=== PATIENT | female | born 1965 | race Caucasian/White ===

== ENCOUNTER 2017-11-14 17:07 | Emergency (ER) | payer OTHER ==
[2017-11-14] MEDS ORDERED: HYDROmorphone 0.5 MG/0.5 ML SYRINGE IVP STA (17:20)
[2017-11-14] MEDS ORDERED: ONDANSETRON 4 MG/2 ML VIAL IVP STA ×2 (17:20→19:18)
--- NOTE | 2017-11-14 17:45 | XR ---
EXAMINATION TYPE: XR chest 1V portable DATE OF EXAM: 11/14/2017 COMPARISON: NONE HISTORY: Difficulty breathing. Fell down the stairs. TECHNIQUE: Single frontal view of the chest is obtained. FINDINGS: Heart and mediastinum are normal. Lungs are clear. There is no sign of pleural effusion or pneumothorax. Bony thorax appears intact. IMPRESSION: No active cardiopulmonary disease.
[2017-11-14 18:03] LABS: Appearance,Urine Clear (Clear); Basophils % (A) 0 %; Bilirubin,Urine Negative (Negative); Blood,Urine Negative (Negative); Color,Urine Yellow; Eosinophils # (A) 0.2 k/uL (0-0.7); Eosinophils % (A) 3 %; Glucose,Urine (UA) Negative (Negative); HCT 38.9 % (34.0-46.0); HGB 13.5 gm/dL (11.4-16.0); Ketones,Urine Negative (Negative); Leukocyte Esterase,Urine Negative (Negative); Lymphocytes # (A) 3.1 k/uL (1.0-4.8); Lymphocytes % (A) 35 %; MCH 31.7 pg (25.0-35.0); MCHC 34.6 g/dL (31.0-37.0); MCV 91.6 fL (80.0-100.0); Mean Platelet Volume 6.7; Monocytes # (A) 0.4 k/uL (0-1.0); Monocytes % (A) 5 %; Neutrophils # (A) 4.9 k/uL (1.3-7.7); Neutrophils % (A) 56 %; Nitrite,Urine Negative (Negative); Platelet Count 299 k/uL (150-450); Protein,Urine Negative (Negative); RBC 4.25 m/uL (3.80-5.40); RDW 12.6 % (11.5-15.5); Specific Gravity,Urine 1.011 (1.001-1.035); Urobilinogen,Urine <2.0 mg/dL (<2.0); WBC 8.8 k/uL (3.8-10.6)
--- NOTE | 2017-11-14 18:04 | ED ---
Fall HPI - General Chief Complaint: Fall Stated Complaint: Fall/Back Pain Time Seen by Provider: 11/14/17 17:14 Source: patient Mode of arrival: wheelchair - History of Present Illness Initial Comments: 51-year-old female patient presents the emergency department today for evaluation of left sided pain after falling down the stairs last evening. Patient states that she tripped and fell down a whole flight of stairs. She denies hitting her head or losing consciousness with the fall. States that she is having pain to the left lateral ribs, left side of her back, and her left hip. Patient states that it is difficult for her to breathe due to the pain. She denies any neck pain, numbness, tingling, or weakness. She denies any hemoptysis, dizziness, blurred vision, or double vision. She denies any hematuria, dysuria, hematochezia, or melena. States that she did take a [place] approximately 3 hours ago without any relief of her symptoms. Patient states she cannot get comfortable. Patient denies any headache, neck pain, abdominal pain, nausea, vomiting, or difficulties with bowel movements or urination. - Related Data Previous Rx's Medication Instructions Recorded Hydrocodone/Acetaminophen [[place] 1 tab PO Q6HR PRN #12 tab 11/14/17 5-325] Allergies Allergy/AdvReac Type Severity Reaction Status Date / Time No Known Allergies Allergy Verified 11/14/17 17:12 Review of Systems ROS Statement: Those systems with pertinent positive or pertinent negative responses have been documented in the HPI. ROS Other: All systems not noted in ROS Statement are negative. Past Medical History Past Medical History: No Reported History History of Any Multi-Drug Resistant Organisms: None Reported Additional Past Surgical History / Comment(s): D&C Past Psychological History: Anxiety Smoking Status: Current some day smoker Past Alcohol Use History: Daily Past Drug Use History: None Reported General Exam Limitations: no limitations General appearance: alert, in no apparent distress, other (This is a well- developed, well-nourished adult female patient in mild distress related to pain. Patient is quite anxious. Vital signs upon presentation are temperature 98.2F, pulse 83, respirations 20, blood pressure 163/88, pulse ox 98% on room air.) Head exam: Present: atraumatic, normocephalic, normal inspection Eye exam: Present: normal appearance, PERRL, EOMI. Absent: scleral icterus, conjunctival injection, nystagmus, periorbital swelling ENT exam: Present: normal exam, normal oropharynx, mucous membranes moist Neck exam: Present: normal inspection, full ROM, other (Nontender, no step-off, no deformity to firm midline palpation of the posterior cervical spine. Full range of motion without pain or limitation.). Absent: tenderness, meningismus, lymphadenopathy Respiratory exam: Present: normal lung sounds bilaterally, chest wall tenderness (Left posterior). Absent: respiratory distress, wheezes, rales, rhonchi, stridor Cardiovascular Exam: Present: regular rate, normal rhythm, normal heart sounds. Absent: systolic murmur, diastolic murmur, rubs, gallop, clicks GI/Abdominal exam: Present: soft, normal bowel sounds. Absent: distended, tenderness, guarding, rebound, rigid Extremities exam: Present: normal inspection, full ROM, normal capillary refill , other (No hip tenderness, skin to the legs is pink, warm, and dry. Cap refills less than 3 seconds. Pedal posttibial pulses are 2+ and equal bilaterally.). Absent: tenderness, pedal edema, joint swelling, calf tenderness Back exam: Present: normal inspection, CVA tenderness (L), other (Patient has extensive ecchymosis and swelling to the left back extending from the subscapular region down to the left hip.). Absent: CVA tenderness (R) Neurological exam: Present: alert, oriented X3, CN II-XII intact Psychiatric exam: Present: normal affect, normal mood Skin exam: Present: warm, dry, intact, normal color. Absent: rash Course Vital Signs 11/14/17 17:09 Temperature 98.2 F Pulse Rate 83 Respiratory 20 Rate Blood Pressure 163/88 O2 Sat by Pulse 98 Oximetry Medical Decision Making - Medical Decision Making 51-year-old female patient presented to the emergency department today for evaluation after a fall down the stairs yesterday. Physical examination did reveal extensive ecchymosis to the left side of the back. Abdomen was soft and nontender. Patient is also having some left-sided rib tenderness. Labs reviewed and are unremarkable. One view chest x-ray was obtained initially, showed no evidence of pneumothorax or pleural effusion. We did perform CT of the chest, abdomen, and pelvis. This did show an L1 transverse process fracture that is nondisplaced. There are no other evidence of trauma. Patient was informed of results. She'll be given prescription for pain management. She is instructed to follow-up with the [facility] for recheck in 1- 2 days. She is instructed to perform coughing and deep breathing exercises for probable rib contusion. She is instructed to return here immediately for any new, worsening, or concerning symptoms. She verbalizes understanding and agrees with this plan. - Lab Data Result diagrams: 11/14/17 17:30 11/14/17 17:30 Lab Results 11/14/17 11/14/17 11/14/17 Range/Units 17:30 17:30 17:30 WBC 8.8 (3.8-10.6) k/uL RBC 4.25 (3.80-5.40) m/uL Hgb 13.5 (11.4-16.0) gm/dL Hct 38.9 (34.0-46.0) % MCV 91.6 (80.0-100.0) fL MCH 31.7 (25.0-35.0) pg MCHC 34.6 (31.0-37.0) g/dL RDW 12.6 (11.5-15.5) % Plt Count 299 (150-450) k/uL Neutrophils % 56 % Lymphocytes % 35 % Monocytes % 5 % Eosinophils % 3 % Basophils % 0 % Neutrophils # 4.9 (1.3-7.7) k/uL Lymphocytes # 3.1 (1.0-4.8) k/uL Monocytes # 0.4 (0-1.0) k/uL Eosinophils # 0.2 (0-0.7) k/uL Basophils # 0.0 (0-0.2) k/uL PT 10.7 (9.0-12.0) sec INR 1.1 (<1.2) APTT 25.4 (22.0-30.0) sec Sodium 143 (137-145) mmol/L Potassium 4.2 (3.5-5.1) mmol/L Chloride 105 (98-107) mmol/L Carbon Dioxide 26 (22-30) mmol/L Anion Gap 12 mmol/L BUN 7 (7-17) mg/dL Creatinine 0.60 (0.52-1.04) mg/dL Est GFR (CKD-EPI)AfAm >90 (>60 ml/min/1.73 sqM) Est GFR (CKD-EPI)NonAf >90 (>60 ml/min/1.73 sqM) Glucose 97 (74-99) mg/dL Calcium 9.0 (8.4-10.2) mg/dL Total Bilirubin 0.3 (0.2-1.3) mg/dL AST 29 (14-36) U/L ALT 26 (9-52) U/L Alkaline Phosphatase 69 (38-126) U/L Total Protein 7.1 (6.3-8.2) g/dL Albumin 4.4 (3.5-5.0) g/dL Urine Color Urine Appearance (Clear) Urine pH (5.0-8.0) Ur Specific [place] (1.001-1.035) Urine Protein (Negative) Urine Glucose (UA) (Negative) Urine Ketones (Negative) Urine Blood (Negative) Urine Nitrite (Negative) Urine Bilirubin (Negative) Urine Urobilinogen (<2.0) mg/dL Ur Leukocyte Esterase (Negative) 11/14/17 Range/Units 17:30 WBC (3.8-10.6) k/uL RBC (3.80-5.40) m/uL Hgb (11.4-16.0) gm/dL Hct (34.0-46.0) % MCV (80.0-100.0) fL MCH (25.0-35.0) pg MCHC (31.0-37.0) g/dL RDW (11.5-15.5) % Plt Count (150-450) k/uL Neutrophils % % Lymphocytes % % Monocytes % % Eosinophils % % Basophils % % Neutrophils # (1.3-7.7) k/uL Lymphocytes # (1.0-4.8) k/uL Monocytes # (0-1.0) k/uL Eosinophils # (0-0.7) k/uL Basophils # (0-0.2) k/uL PT (9.0-12.0) sec INR (<1.2) APTT (22.0-30.0) sec Sodium (137-145) mmol/L Potassium (3.5-5.1) mmol/L Chloride (98-107) mmol/L Carbon Dioxide (22-30) mmol/L Anion Gap mmol/L BUN (7-17) mg/dL Creatinine (0.52-1.04) mg/dL Est GFR (CKD-EPI)AfAm (>60 ml/min/1.73 sqM) Est GFR (CKD-EPI)NonAf (>60 ml/min/1.73 sqM) Glucose (74-99) mg/dL Calcium (8.4-10.2) mg/dL Total Bilirubin (0.2-1.3) mg/dL AST (14-36) U/L ALT (9-52) U/L Alkaline Phosphatase (38-126) U/L Total Protein (6.3-8.2) g/dL Albumin (3.5-5.0) g/dL Urine Color Yellow Urine Appearance Clear (Clear) Urine pH 5.0 (5.0-8.0) Ur Specific [place] 1.011 (1.001-1.035) Urine Protein Negative (Negative) Urine Glucose (UA) Negative (Negative) Urine Ketones Negative (Negative) Urine Blood Negative (Negative) Urine Nitrite Negative (Negative) Urine Bilirubin Negative (Negative) Urine Urobilinogen <2.0 (<2.0) mg/dL Ur Leukocyte Esterase Negative (Negative) - Radiology Data Radiology results: report reviewed, image reviewed Portable 1 view x-ray of the chest was obtained. Heart and mediastinum are normal. Lungs are clear. There is no sign of pleural effusion or pneumothorax. Bony thorax appears intact. Impression by Dr. Martinez shows no active cardiopulmonary disease. CT of the chest, abdomen, and pelvis with contrast was obtained. Report was reviewed in its entirety. Impression by Dr. Martinez shows L1 transverse process tip fracture. Otherwise negative CT scanning of the abdomen and pelvis and chest. Disposition Clinical Impression: L1 vertebral fracture, Rib contusion, Back contusion Narrative: Transverse Process fracture, Non-displaced. Disposition: HOME SELF-CARE Instructions: Thoracolumbar Fracture (ED) Additional Instructions: Apply ice to the bruised and painful areas. Take pain medication as directed. Perform coughing and deep breathing exercises 10 times an hour while awake. Follow-up with your primary care physician for recheck in 1-2 days. Follow-up with [facility] for recheck in 1-2 days. Return here immediately for any new, worsening, or concerning symptoms. Prescriptions: Hydrocodone/Acetaminophen [[place] 5-325] 1 tab PO Q6HR PRN #12 tab PRN Reason: Pain Is patient prescribed a controlled substance at d/c from ED?: Yes When asked, does pt state using other controlled substances?: Yes If prescribed controlled substance>3 days was MAPS reviewed?: Prescribed <3 Days If opioid is for acute pain is fill amount 7 days or less?: Yes If Rx opioid, was Start Talking consent form obtained?: Yes Referrals: Krysta Foley DO [Doctor of Osteopathic Medicine] - 1-2 days Time of Disposition: 18:42
[2017-11-14 18:12] LABS: ALT 26 U/L (9-52); AST 29 U/L (14-36); Albumin 4.4 g/dL (3.5-5.0); Alkaline Phosphatase 69 U/L (38-126); Anion Gap 12 mmol/L; Blood Urea Nitrogen 7 mg/dL (7-17); Carbon Dioxide 26 mmol/L (22-30); Chloride 105 mmol/L (98-107); Glucose 97 mg/dL (74-99); INR 1.1 (<1.2); Partial Thromboplastin Time 25.4 sec (22.0-30.0); Potassium 4.2 mmol/L (3.5-5.1); Prothrombin Time 10.7 sec (9.0-12.0); Sodium 143 mmol/L (137-145); Total Bilirubin 0.3 mg/dL (0.2-1.3); Total Protein 7.1 g/dL (6.3-8.2)
--- NOTE | 2017-11-14 18:29 | CT ---
EXAMINATION TYPE: CT ChestAbdPelvis w con DATE OF EXAM: 11/14/2017 COMPARISON: NONE HISTORY: Patient complains of left side back pain post fall down stairs. CT DLP: 1108 mGycm Automated exposure control for dose reduction was used. CONTRAST: CT scan of the chest, abdomen and pelvis is performed without Oral Contrast and with IV Contrast, pat ient injected with 100 mL of Isovue 300. FINDINGS: The lungs are clear of infiltrate. There is no evidence of pleural effusion or pneumothorax. Thoracic aorta appears intact. There is no evidence of aneurysm or dissection. Heart size is normal. There is no pericardial effusion. There is no mediastinal adenopathy. Liver spleen pancreas gallbladder appear normal. Bile ducts are not dilated. There is no adrenal mass . Kidneys show satisfactory contrast opacification. There is no hydronephrosis. There is no intestina l wall thickening. There are no dilated loops. Bladder distends smoothly. Uterus is anteverted. There is no free fluid in the pelvis. There is no evidence of free air. Appendix is not seen. There is no sign of appendicitis. There is nondisplaced fracture of the left transverse process of L 1. There is no lumbar paraspinal mass. Thoracic and lumbar spine are otherwise intact. There is no compression fr acture. I see no rib fracture. IMPRESSION: L1 transverse process tip fracture. Otherwise negative CT scan of the abdomen and pelvis and chest.
[2017-11-14 19:00] VITALS: PULSE 78
[2017-11-14 19:18] VITALS: BP 167/64; RESP 18; TEMP 97.2
[2017-11-14] MEDS ORDERED: ONDANSETRON 4 MG ODT STARTER PACK 2 TAB BTL PO STA (19:19)
== END 2017-11-14 19:23 | disposition home or self-care (01) ==
LOC: EC 17:07
DX: S32.019A Unspecified fracture of first lumbar vertebra, initial encounter for closed fracture (principal); S20.212A Contusion of left front wall of thorax, initial encounter; F17.200 Nicotine dependence, unspecified, uncomplicated; W10.9XXA Fall (on) (from) unspecified stairs and steps, initial encounter; Y92.009 Unspecified place in unspecified non-institutional (private) residence as the place of occurrence of the external cause
CPT/HCPCS: 36415; 80053; 85025; 85610; 85730; 81003; 71045; 71260; 74177; 99284; 96374; 96375; J2405; S0119; J1170; Q9967

== ENCOUNTER 2017-11-19 01:38 | Emergency (ER) | payer OTHER ==
[2017-11-19 01:46] VITALS: RESP 18
[2017-11-19] MEDS ORDERED: ONDANSETRON ODT 4 MG TAB PO STA (02:26)
[2017-11-19] MEDS ORDERED: ONDANSETRON 4 MG ODT STARTER PACK 2 TAB BTL PO STA (02:26)
[2017-11-19] MEDS ORDERED: HYDROcodone/APAP 5-325MG 1 EACH TAB PO STA (02:27)
--- NOTE | 2017-11-19 02:43 | ED ---
Back Pain HPI - General Chief Complaint: Back Pain/Injury Stated Complaint: Back Pain Time Seen by Provider: 11/19/17 02:03 Source: patient, RN notes reviewed Limitations: no limitations - History of Present Illness Initial Comments: This is a 51-year-old female who presents to the emergency department with chief complaint of back pain. Patient was seen in the emergency department on Sunday after falling down a flight of stairs on Sunday. Patient underwent a computed tomography scan of the chest, abdomen and pelvis. No visceral organ damage was noted, however patient was diagnosed with a transverse tip fracture of L1. Patient states that she has been doing well. She denies any new falls, injuries or trauma. She states that she never picked up her [place] prescription at the pharmacy because after taking one here in the emergency department she vomited. She states that she has been taking ibuprofen 800 with minimal relief. Patient states that throughout the day today she has experienced a sharp, excruciating pain in her back when she coughs or sneezes, however does not experience the pain at any other time. She denies any fevers or chills, chest pain shortness of breath, abdominal pain, nausea or vomiting, diarrhea or constipation, dysuria or hematuria. - Related Data Previous Rx's Medication Instructions Recorded Hydrocodone/Acetaminophen [[place] 1 tab PO Q6HR PRN #12 tab 11/14/17 5-325] Allergies Allergy/AdvReac Type Severity Reaction Status Date / Time No Known Allergies Allergy Verified 11/19/17 01:45 Review of Systems ROS Statement: Those systems with pertinent positive or pertinent negative responses have been documented in the HPI. ROS Other: All systems not noted in ROS Statement are negative. Past Medical History Past Medical History: No Reported History History of Any Multi-Drug Resistant Organisms: None Reported Additional Past Surgical History / Comment(s): D&C Past Psychological History: Anxiety, Depression Smoking Status: Current some day smoker Past Alcohol Use History: Daily Past Drug Use History: Marijuana General Exam - General Exam Comments Initial Comments: General: Awake and alert, well-developed; in no apparent distress. HEENT: Head atraumatic, normocephalic. Pupils are equal, round and reactive to light. Extraocular movements intact. Oropharynx moist without erythema or exudate. Neck: Supple. Normal ROM. Cardiovascular: Regular rate and rhythm. No murmurs, rubs or gallops. Chest symmetrical. Tenderness along the left anterior and lateral ribs. Respiratory: Lungs clear to auscultation bilaterally. No wheezes, rales or rhonchi. Normal respiratory effort with no use of accessory muscles. Abdomen: Soft, non-distended. No tenderness on palpation of the abdomen. No rigidity, rebound or guarding. Normal bowel sounds in all 4 quadrants. Musculoskeletal: Normal ROM, no tenderness bilateral upper and lower extremities. Ambulating normally. Skin: [place], warm and dry with a large contusion noted to the left flank. Neurological: Alert and oriented x3. CN II-XII grossly intact. Speech is fluent and answers are appropriate. No focal neuro deficits. Psychiatric: Normal mood and affect. No overt signs of depression or anxiety noted. Limitations: no limitations Back exam: Present: full ROM. Absent: tenderness, paraspinal tenderness, vertebral tenderness Course Vital Signs 11/19/17 11/19/17 11/19/17 01:41 02:57 03:17 Temperature 98.2 F Pulse Rate 72 65 64 Respiratory 18 18 18 Rate Blood Pressure 192/79 181/91 172/92 O2 Sat by Pulse 98 98 99 Oximetry 11/19/17 03:29 Temperature 97.9 F Pulse Rate 69 Respiratory 18 Rate Blood Pressure 165/92 O2 Sat by Pulse 100 Oximetry Medical Decision Making - Medical Decision Making This is a 51-year-old female who presents to the emergency department with chief complaint of back pain. Patient was seen on Sunday after falling down a flight of stairs and sustaining an L1 transverse fracture, rib contusion and back contusion. Patient states that she has been feeling well, however today she has experienced increase in pain with coughing and sneezing. On physical examination, there is a large contusion on the left flank with associated tenderness. There is tenderness along the left ribs. No vertebral bony point tenderness. Computed tomography scan of the chest, abdomen and pelvis from a previous visit was reviewed. No solid visceral organ damage was noted. Case was discussed with attending physician, Dr. Vegas. Patient does not appear acutely ill and is hemodynamically stable. Given Zofran and [place] while in the emergency department. Return parameters were discussed. Patient is advised to take Zofran 20-30 minutes prior to taking a [place]. Also recommended cutting the [place] and half if she becomes nauseous. Patient was noted to have high blood pressure 1 the emergency department. On review of previous vital signs, she also had high blood pressure. Patient states that she is aware of this but just has not followed up with a primary care doctor. I strongly advised that she do so. Vital signs are stable and patient is in no acute distress. She will be discharged home at this time. All questions answered. Disposition Clinical Impression: Back pain Disposition: HOME SELF-CARE Condition: Good Instructions: Back Pain (ED) Additional Instructions: Please take medications as prescribed. Please follow up with primary care provider within 1-2 days. Return to emergency department if symptoms should worsen or any concerns arise. Is patient prescribed a controlled substance at d/c from ED?: No Referrals: None,Stated [Primary Care Provider] - 1-2 days Time of Disposition: 03:38
[2017-11-19 03:30] VITALS: BP 165/92; PULSE 69; TEMP 97.9
== END 2017-11-19 03:40 | disposition home or self-care (01) ==
LOC: EC 01:38
DX: M54.9 Dorsalgia, unspecified (principal); R11.2 Nausea with vomiting, unspecified; S32.019D Unspecified fracture of first lumbar vertebra, subsequent encounter for fracture with routine healing; S30.1XXD Contusion of abdominal wall, subsequent encounter; S20.212D Contusion of left front wall of thorax, subsequent encounter; F17.200 Nicotine dependence, unspecified, uncomplicated; W10.9XXD Fall (on) (from) unspecified stairs and steps, subsequent encounter
CPT/HCPCS: 99283; S0119

== ENCOUNTER 2018-02-03 23:24 | Emergency (ER) | payer OTHER ==
[2018-02-04 00:07] VITALS: BP 161/102; PULSE 75; RESP 16; TEMP 98.3
--- NOTE | 2018-02-04 00:43 | ED ---
General Adult HPI - General Chief complaint: Neck Pain/Injury Stated complaint: Neck Pain Time Seen by Provider: 02/03/18 23:54 Source: patient, RN notes reviewed Mode of arrival: ambulatory Limitations: no limitations - History of Present Illness Initial comments: 52-year-old female since to the emergency department for left-sided facial and neck swelling. Patient states that today at 2 PM she ate popcorn and noticed the pain in the left side of her face and neck. She states she noticed swelling up here after this as well. Patient states that shortly after eating the popcorn it resolved. Patient states this happened again when eating a sandwich one hour later. Patient states the swelling again appeared but decreased shortly after she stopped eating. Patient states the area is roping machine tender to touch and somewhat painful but denies any swelling at this time. Patient denies any difficulty breathing or swallowing. Patient denies any pain with movement of the neck. Patient denies any fevers or chills at home. Patient denies any xerostoma. Patient has no other complaints at this time including shortness of breath, chest pain, abdominal pain, nausea or vomiting, headache, or visual changes. - Related Data Previous Rx's Medication Instructions Recorded Hydrocodone/Acetaminophen [[place] 1 tab PO Q6HR PRN #12 tab 11/14/17 5-325] Allergies Allergy/AdvReac Type Severity Reaction Status Date / Time No Known Allergies Allergy Verified 02/03/18 23:55 Review of Systems ROS Statement: Those systems with pertinent positive or pertinent negative responses have been documented in the HPI. ROS Other: All systems not noted in ROS Statement are negative. Past Medical History Past Medical History: No Reported History History of Any Multi-Drug Resistant Organisms: None Reported Additional Past Surgical History / Comment(s): D&C, lumpectomy Past Psychological History: Anxiety, Depression Smoking Status: Current some day smoker Past Alcohol Use History: Daily Past Drug Use History: Marijuana General Exam Limitations: no limitations General appearance: alert, in no apparent distress Head exam: Present: atraumatic, normocephalic, normal inspection Eye exam: Present: normal appearance, PERRL, EOMI. Absent: scleral icterus, conjunctival injection, periorbital swelling ENT exam: Present: normal exam, normal oropharynx, mucous membranes moist, TM's normal bilaterally (Non-erythematous, nonbulging, no serous material noted), normal external ear exam Neck exam: Present: normal inspection, tenderness (Mild tenderness noted of the left parotid gland and left lateral anterior neck.), full ROM (Full range of motion of the neck), other (No swelling noted of the parotid gland or left neck , no erythema or signs of infection such as purulent material. Palpation of the submandibular and parotid glands and floor of mouth revealed no abnormalities or masses.). Absent: meningismus, lymphadenopathy Respiratory exam: Present: normal lung sounds bilaterally. Absent: respiratory distress, wheezes, rales, rhonchi, stridor Cardiovascular Exam: Present: regular rate, normal rhythm, normal heart sounds. Absent: systolic murmur, diastolic murmur, rubs, gallop, clicks Neurological exam: Present: alert, oriented X3, CN II-XII intact Psychiatric exam: Present: normal affect, normal mood Course Vital Signs 02/03/18 23:53 Temperature 98.3 F Pulse Rate 75 Respiratory 16 Rate Blood Pressure 161/102 O2 Sat by Pulse 98 Oximetry Medical Decision Making - Medical Decision Making 52-year-old female presents to the emergency department for a chief complaint of left facial and neck swelling occurring after she eats 2 episodes occuring earlier today. Patient admits to mild tenderness at this time but on exam there is no swelling noted. Palpation of the parotid and submandibular gland revealed no masses. Palpation under the tongue revealed no abnormalities. No erythema or signs of infection noted. No purulent material noted. Patient likely has a sialolithiasis causing swelling of the parotid gland after mealtimes. She was educated to use sour candies and attempt to dislodge a stone and to follow-up with ENT. We did discuss monitoring for signs of infection such as erythema, fever or purulent material and returning if these or any other worsening symptoms occur. Patient was also seen by Dr. Schroeder. Disposition Clinical Impression: Sialolithiasis Disposition: HOME SELF-CARE Condition: Good Instructions: Sialoadenitis (ED) Additional Instructions: Please use sour candies to try to dislodge stone. Please follow up with ENT in 1-2 days if symptoms do not resolve. Return to the emergency department if you have any worsening symptoms, redness of the area, or fever. Is patient prescribed a controlled substance at d/c from ED?: No Referrals: Tamir Costa MD [STAFF PHYSICIAN] - 1-2 days Time of Disposition: 00:41
== END 2018-02-04 00:53 | disposition home or self-care (01) ==
LOC: EC 23:24
DX: K11.5 Sialolithiasis (principal); F17.200 Nicotine dependence, unspecified, uncomplicated
CPT/HCPCS: 99283

== ENCOUNTER → 2020-03-08 | Outpatient (CLI) | payer OTHER ==
--- NOTE | 2020-03-08 19:21 | CT ---
EXAMINATION TYPE: CT abdomen pelvis w con DATE OF EXAM: 03/08/2020 COMPARISON: CT chest abdomen pelvis 11/14/2017. HISTORY: Epigastric pain CT DLP: 475.2 mGycm Automated exposure control for dose reduction was used. TECHNIQUE: Helical acquisition of images was performed from the lung bases through the pelvis. CONTRAST: Performed with Oral Contrast and with IV Contrast, patient injected with 100 mL of Isovue 300. FINDINGS: LUNG BASES: Normal. LIVER: Enlarged measuring 17.3 cm in cranial caudal dimension, unchanged versus 2018 CT comparison. T here are a few too small to characterize hypodense lesions of the liver. Borderline fatty attenuation . BILIARY SYSTEM: Normal. PANCREAS: Normal. SPLEEN: Normal. ADRENALS: Normal. KIDNEYS: Normal. BOWEL: No evidence of obstruction or thickening. PERITONEUM: No pneumoperitoneum. No free fluid. LYMPH NODES: No lymphadenopathy. PELVIS: Normal. VASCULATURE: No abdominal aortic aneurysm. MUSCULOSKELETAL: Normal. IMPRESSION: 1. Redemonstrated hepatomegaly measuring up to 17.3 cm. Borderline fatty attenuation of the liver. 2. Otherwise no acute abdominopelvic process.
== END | disposition home or self-care (01) ==
LOC: RADCTMAIN 11:51
PROVIDERS: ATTEND Family Medicine
DX: R16.0 Hepatomegaly, not elsewhere classified (principal); R10.13 Epigastric pain
CPT/HCPCS: 74177; Q9967 ×2

== ENCOUNTER 2020-04-16 10:23 | Day surgery (SDC) | payer OTHER ==
[2020-03-17 12:01] VITALS: BMI 21.3
[~2020-04-16 10:23] MED LIST: LACTATED RINGERS 1,000 ML IV SCH; LIDOCAINE 1% (10MG/ML) FOR IV START INTRADERMA PRN
[2020-04-16 11:08] VITALS: TEMP 98.1
[2020-04-16] MEDS ORDERED: LACTATED RINGERS 1,000 ML IV ONE (11:08)
[2020-04-16] MEDS ORDERED: FAMOTIDINE 20 MG/2 ML VIAL IVP ONE (11:19)
[2020-04-16] MEDS ORDERED: PROPOFOL 10 MG/ML 20 ML VIAL IV ONE (12:47)
--- NOTE | 2020-04-16 12:51 | P.GSHP ---
History of Present Illness H&P Date: 04/16/20 Chief Complaint: Screening colonoscopy This a 54-year-old female who presents today for screening colonoscopy. Patient denies a significant GI complaints. Past Medical History Past Medical History: No Reported History Additional Past Medical History / Comment(s): HAD COLD LIKE SYMPTOMS ABOUT 1 1/2 WEEKS AGO History of Any Multi-Drug Resistant Organisms: None Reported Additional Past Surgical History / Comment(s): D&C, lumpectomy Past Anesthesia/Blood Transfusion Reactions: No Reported Reaction Smoking Status: Former smoker - Past Family History Mother Family Medical History: Cancer Medications and Allergies Home Medications Medication Instructions Recorded Confirmed Type No Known Home Medications 03/17/20 04/14/20 History Allergies Allergy/AdvReac Type Severity Reaction Status Date / Time No Known Allergies Allergy Verified 04/14/20 11:27 Surgical - Exam Vital Signs Temp Pulse Resp BP Pulse Ox 98.1 F 88 18 190/88 98 04/16/20 11:07 04/16/20 11:07 04/16/20 11:07 04/16/20 11:07 04/16/20 11:07 - General well developed, well nourished, no distress - Eyes PERRL - ENT normal pinna - Neck no masses - Respiratory normal expansion - Cardiovascular Rhythm: regular - Abdomen Abdomen: soft, non tender Assessment and Plan Assessment: We'll perform screening colonoscopy
--- NOTE | 2020-04-16 13:03 | P.OP ---
Date of Procedure: 04/16/20 Preoperative Diagnosis: Screening colonoscopy Postoperative Diagnosis: Normal colon Procedure(s) Performed: Colonoscopy Anesthesia: MAC Surgeon: Ermias Pearson Pathology: none sent Condition: stable Disposition: PACU Description of Procedure: PROCEDURE: The patient was placed on the endoscopy table in the lateral position. Digital rectal examination was performed which revealed no abnormalities. . Flexible colonoscope was then placed in the patient's anus and passed throughout the entire colon. The ileocecal valve was visualized. The cecum, ascending, transverse, descending and sigmoid colon were normal. The rectum was normal as well. There were no masses, polyps or diverticula noted in the entire colon. SUMMARY OF FINDINGS: Normal colonoscopy.
[2020-04-16 13:09] VITALS: RESP 16
[2020-04-16 13:40] VITALS: BP 143/72; PULSE 68
== END 2020-04-16 14:15 | disposition home or self-care (01) ==
LOC: ORWHC2ENDO 10:23
PROVIDERS: ATTEND Surgery
DX: Z12.11 Encounter for screening for malignant neoplasm of colon (principal); K76.0 Fatty (change of) liver, not elsewhere classified; Z98.890 Other specified postprocedural states; Z87.891 Personal history of nicotine dependence; Z80.9 Family history of malignant neoplasm, unspecified
CPT/HCPCS: J2704; G0121

== ENCOUNTER → 2020-06-07 | Outpatient (CLI) | payer OTHER ==
--- NOTE | 2020-06-08 12:30 | MM ---
Reason for exam: screening (asymptomatic). Last mammogram was performed 9 years and 9 months ago. History: Patient is postmenopausal. Family history of breast cancer in paternal grandmother. Took hormonal contraceptives for 10 years. Physical Findings: A clinical breast exam by your physician is recommended on an annual basis and results should be correlated with mammographic findings. MG Screening Mammo w CAD Bilateral CC and MLO view(s) were taken. Prior study comparison: September 15, 2010, mammogram. October 19, 2008, mammogram. There are scattered fibroglandular densities. No significant changes when compared with prior studies. ASSESSMENT: Negative, BI-RAD 1 RECOMMENDATION: Routine screening mammogram of both breasts in 1 year.
== END | disposition home or self-care (01) ==
LOC: RADMAMWWP 16:22
PROVIDERS: ATTEND Family Medicine
DX: Z12.31 Encounter for screening mammogram for malignant neoplasm of breast (principal)
CPT/HCPCS: 77067

== ENCOUNTER → 2020-06-24 | Outpatient (CLI) | payer OTHER ==
--- NOTE | 2020-06-24 18:49 | MR ---
EXAMINATION TYPE: MR brain and iac wo/w con DATE OF EXAM: 06/24/2020 COMPARISON: None HISTORY: Right sided Hearing loss TECHNIQUE: Multiplanar, multisequence images of the brain and brainstem is performed with small [id number] an d high resolution images through the internal auditory canals without and with IV contrast, utilizing 6 mL intravenous Gadavist . FINDINGS: Diffusion weighted images demonstrate no evidence of a recent infarct or other diffusion ab normality. There is no extra-axial fluid collection or significant white matter signal abnormality. The ventricular system and cisternal spaces are normal in size and appearance. The brain volume is age appropriate. Midline structures demonstrate normal morphology. Cerebellopontine angles, internal auditory canals a re normal. The craniocervical junction appears within normal limits. Post contrast images demonstrat e no abnormal enhancement. The dural venous sinuses appear patent. The visualized sinuses are remarka ble for mucoperiosteal thickening within the ethmoid air cells and the globes are intact. IMPRESSION: No cerebellopontine angle mass, no abnormal enhancement within the internal auditory sheryl ls, normal brain MRI
== END | disposition home or self-care (01) ==
LOC: RADMRIMAIN 11:41
PROVIDERS: ATTEND Otolaryngology
DX: H73.891 Other specified disorders of tympanic membrane, right ear (principal)
CPT/HCPCS: 70553; A9585

== ENCOUNTER 2021-12-11 17:37 | Emergency (ER) | payer OTHER ==
[2021-12-11 17:43] LABS: Glucose,Whole Blood 92 mg/dL (70-110)
[2021-12-11 17:48] VITALS: BP 130/78; PULSE 0; RESP 0
--- NOTE | 2021-12-11 19:57 | ED ---
CPR HPI - General Chief Complaint: Cardiac Arrest/CPR Stated Complaint: Cardiac arrest Time Seen by Provider: 12/11/21 17:40 Source: EMS Mode of arrival: EMS - History of Present Illness Initial Comments: 55 year old female with past medical history of back pain presents to the emergency department as a cardiac arrest. EMS was called to the house where there was an unresponsive female. Daughter states that she had seen her 30 minutes prior and she was acting normally. She did have a recent upper respiratory infection however was tested 3 times for Covid and was negative. The daughter left her alone to take a nap on the couch. She tried to wake her up 30 minutes later and was unable to. States that she was shaking violently. She called EMS. Patient was brought outside by fire and CPR was initiated. Patient was intubated with a 7-[place] ET tube. She was given 1 epi. Multiple pulse checks demonstrated asystole. CPR had been in progress for 20 minutes prior to hospital arrival. Patient arrives pulseless and apneic. Capnography is 6. No other history is available at this time. - Related Data Home Medications Medication Instructions Recorded Confirmed No Known Home Medications 03/17/20 04/14/20 Allergies Allergy/AdvReac Type Severity Reaction Status Date / Time No Known Allergies Allergy Verified 04/14/20 11:27 Review of Systems ROS Statement: Those systems with pertinent positive or pertinent negative responses have been documented in the HPI. ROS Other: All systems not noted in ROS Statement are negative. Past Medical History Past Medical History: No Reported History History of Any Multi-Drug Resistant Organisms: None Reported Additional Past Surgical History / Comment(s): D&C, lumpectomy Past Psychological History: Anxiety, Depression Smoking Status: Unknown if ever smoked Past Alcohol Use History: Daily Past Drug Use History: Marijuana General Exam General appearance: other (Unresponsive) Head exam: Present: atraumatic, normocephalic, normal inspection Eye exam: Present: other (6 mm, nonreactive equal) ENT exam: Present: mucous membranes dry Respiratory exam: Present: other (No spontaneous respirations) Cardiovascular Exam: Present: other (No spontaneous heart sounds) GI/Abdominal exam: Absent: distended Extremities exam: Present: other (Scattered lower extremity abrasions) Back exam: Present: normal inspection Neurological exam: Present: other (Unresponsive to painful stimuli here) Skin exam: Present: pallor, mottled Course Vital Signs 07/31/22 17:40 Pulse Rate 0 L Respiratory 0 L Rate Blood Pressure 130/78 O2 Sat by Pulse 52 L Oximetry Medical Decision Making - Medical Decision Making The patient was placed in a trauma 1. She arrives pulseless and apneic. CPR was continued. She was given multiple rounds of epinephrine, sodium bicarbonate, calcium chloride. She was additionally given a liter and half of fluid. Multiple pulse checks were completed which continued to demonstrate asystole. After 40 minutes of CPR efforts were ceased. Time of was called at 1804. Family was notified. I spoke with the patients primary care physician, Dr. Jameson who stated that the patient did not have any medical problems. land examiner is notified. Patient's case number is [id number]. - Lab Data Lab Results 12/11/21 Range/Units 17:41 POC Glucose (mg/dL) 92 (70-110) mg/dL POC Glu General Dentist ID Gilles Salamanca Critical Care Time Critical Care Time: Yes Critical Care Time: 35 minutes Disposition Clinical Impression: Cardiac arrest Disposition: Referrals: None,Stated [Primary Care Provider] - 1-2 days Preliminary Cause of : cardiac arrest
== END 2021-12-11 23:00 | disposition expired ==
LOC: EC 17:37
DX: I46.9 Cardiac arrest, cause unspecified (principal)
CPT/HCPCS: 36415; 99291